=== PATIENT | female | born 1935 | race Caucasian/White ===

== ENCOUNTER 2016-08-13 18:52 | Emergency (ER) | payer OTHER ==
[~2016-08-13] VITALS: Ht 161.3 cm; Wt 54.4 kg
[~2016-08-13 18:52] MED LIST: LABETALOL HYDR100 MG PO; TRAMADOL50 MG PO; TRAVATAN Z50 GTT/1 B OPH; URSODIOL250 MG PO
[2016-08-13 21:57] VITALS: BP 148/80
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
[2016-08-13] MEDS ORDERED: LIDODERM1 EACH TOP (23:57)
== END 2016-08-14 00:02 ==
LOC: ERH 18:52
DX: S30.0XXA Contusion of lower back and pelvis, initial encounter (principal); V03.00XA Pedestrian on foot injured in collision with car, pick-up truck or van in nontraffic accident, initial encounter; Y92.9 Unspecified place or not applicable; Y93.9 Activity, unspecified
CPT/HCPCS: 72110; 73502-LT